=== PATIENT | female | born 1935 | race Caucasian/White ===

== ENCOUNTER 2016-05-06 11:29 | Outpatient (CLI) | payer OTHER ==
--- NOTE | 2016-05-06 14:03 | DIAGNOSTIC IMAGING REPORT ---
PROCEDURE: CT THORAX ABDOMEN W/O CONTRAST INDICATION: CHEST MASS TECHNIQUE: Axial scans with coronal and sagittal re-formations. COMPARISON: [facility] chest x-ray 04/27/2016. FINDINGS: Chest: Moderate emphysema. 1.7 cm mildly spiculated left upper lobe mass. No adenopathy or effusion. Moderate atherosclerosis of the aorta. Coronary atherosclerosis. Normal heart size. Old mild T7 compression and right rib fractures. Mild degenerative changes of the spine. Abdomen: Multiple sharply marginated cystic lesions throughout the liver, largest in the tip of the right hepatic lobe measuring 3.4 cm. Some of these demonstrate calcification and some of the sub centimeter lesions are not as well as sharply marginated and may represent solid masses. Contracted gallbladder with multiple small calcified gallstones. The pancreas, spleen and adrenal glands are normal. Bilateral renal cysts. Severe atherosclerosis of the aorta. No retroperitoneal adenopathy. Small hiatal hernia. Mild proximal sigmoid diverticulosis. IMPRESSION: 1. 1.7 cm left upper lobe spiculated nodule suspicious for lung neoplasm. Metastasis is less likely. 2. Multiple hepatic cystic lesions, many of which are consistent with cysts but there are several subcentimeter lesions which may be solid, possibly hemangiomas or metastases. Recommend CT scan with contrast or if the patient is unable, abdominal ultrasound. 3. Emphysema 4. Cholelithiasis 5. Hiatal hernia 6. Results discussed with LATOYA Hernandez
== END 2016-05-06 23:00 ==
LOC: CT SRH 11:29
DX: R22.9 Localized swelling, mass and lump, unspecified (principal)
CPT/HCPCS: 90074; 90100

== ENCOUNTER 2016-05-15 09:08 | Outpatient (CLI) | payer OTHER ==
--- NOTE | 2016-05-15 11:10 | DIAGNOSTIC IMAGING REPORT ---
PROCEDURE: US ABDOMEN ULTRASOUND-COMPLETE INDICATION: LIVER CYST, follow-up TECHNIQUE: Maguire scale and color Doppler sonographic images of the abdomen were obtained. COMPARISON: CT chest/abdomen 05/06/2016 FINDINGS: Liver measures 16.5 cm with coarse echo structure. There are multiple simple hepatic cysts, largest of 3.7. No evidence of solid hepatic masses. Normal spleen and pancreas. Multiple small gallstones but there is no wall thickening or pericholecystic fluid. Normal CBD measures 3.4 mm. Negative Ryan's sign. Aorta and IVC are patent. Hepatopetal flow in the portal vein. Right kidney measures 9.7 cm with a 1.1 cm lower pole cyst. Left kidney measures 7.9 cm with a 2.2 cm upper pole and 0.4 mid pole of cysts. A 4 mm mid pole echogenic focus corresponding to the vascular calcification seen on CT scan. No hydronephrosis. IMPRESSION: 1. Multiple hepatic cysts. No evidence of solid hepatic masses 2. Cholelithiasis 3. Bilateral renal cysts
== END 2016-05-15 23:00 ==
LOC: US SRH 09:08
DX: K76.89 Other specified diseases of liver (principal); N28.1 Cyst of kidney, acquired

== ENCOUNTER 2016-05-18 11:57 | Outpatient (CLI) | payer OTHER ==
--- NOTE | 2016-05-18 14:20 | DIAGNOSTIC IMAGING REPORT ---
PROCEDURE: CT LUNG/MEDIASTINUM BIOPSY CLINICAL INDICATION: Left lung mass/nodule. TECHNIQUE: Informed consent was obtained and the patient was advised of the usual risks and complications including infection, bleeding, allergy and pneumothorax. COMPARISON: Comparison is made to CT thorax on 05/06/2016. FINDINGS: Supine position. Following sterile preparation and 1% lidocaine local anesthetic, CT guidance was utilized to place a 19 gauge coaxial needle in the left upper anterior lateral thorax and directed into a 1.7 cm left lung nodule. Three core biopsy samples were obtained with a 20 gauge biopsy instrument. Follow-up CT images demonstrated moderate surrounding parenchymal hemorrhage. There is no hemoptysis. There is no evidence of pneumothorax The patient tolerated the procedure reasonably well and was transferred back to the main department for observation. IMPRESSION: 1. Successful CT-guided biopsy of left lung mass. 2. Moderate postbiopsy parenchymal hemorrhage. 3. Followup chest x-rays are pending. All CT scans at this facility use dose modulation, iterative reconstruction, and/or weight-based dosing when appropriate to reduce radiation dose to as low as reasonably achievable.
--- NOTE | 2016-05-18 14:23 | DIAGNOSTIC IMAGING REPORT ---
PROCEDURE: XR CHEST 1 VIEW INDICATION: Post left lung biopsy (20-minute film). TECHNIQUE: PA view (1405 hours). COMPARISON: Comparison made to chest x-ray from [facility] on 04/27/2016 FINDINGS: Status post left lung biopsy with mild to moderate parenchymal hemorrhage in the left upper lung. In addition, there is a small left apical pneumothorax. There is mild of bibasilar parenchymal scarring. Heart and mediastinum are normal IMPRESSION: 1. Status post left lung biopsy with mild to moderate parenchymal hemorrhage in the left upper lung. 2. Small left apical pneumothorax. 3. Follow-up chest x-rays are pending.
--- NOTE | 2016-05-18 16:43 | DIAGNOSTIC IMAGING REPORT ---
PROCEDURE: XR CHEST 1 VIEW INDICATION: Follow-up left lung biopsy (2 hours). TECHNIQUE: PA view (1600 hours). COMPARISON: Compared to chest x-ray earlier today (1500 hours, 05/18/2016). FINDINGS: Small left apical pneumothorax has resolved. There is resolving left lung pulmonary hemorrhage. The rest of the chest is unchanged. IMPRESSION: 1. Resolution of left apical pneumothorax. 2. Resolving left lung pulmonary hemorrhage. 3. The patient was discharged home to the care of her sister in satisfactory condition, with instructions to call me for any untoward symptoms (chest pain, shortness of breath).
--- NOTE | 2016-05-18 18:52 | DIAGNOSTIC IMAGING REPORT ---
PROCEDURE: XR CHEST 1 VIEW INDICATION: Follow-up left lung biopsy (1 hour 15 minutes). TECHNIQUE: PA view (1500 hours). COMPARISON: Compared to chest x-ray earlier today (05/18/2016, 1405 hours). FINDINGS: Small left apical pneumothorax remains stable. There is mild improvement with resolving left upper lung parenchymal hemorrhage. The rest of the chest is unchanged. IMPRESSION: 1. Stable appearance of a small left apical pneumothorax. 2. Resolving left upper lung parenchymal hemorrhage. 3. Follow-up chest x-ray is pending.
== END 2016-05-18 23:00 ==
LOC: CT SRH 11:57 → US SRH 12:00 → CT SRH 23:00
PROC: 0BBL3ZX Excision of Left Lung, Percutaneous Approach, Diagnostic (ICD-10-PCS; principal; 2016-05-18)
DX: R91.8 Other nonspecific abnormal finding of lung field (principal); J95.830 Postprocedural hemorrhage of a respiratory system organ or structure following a respiratory system procedure; J93.9 Pneumothorax, unspecified
CPT/HCPCS: 82445; 82585

== ENCOUNTER 2016-07-30 12:03 | Outpatient (CLI) | payer OTHER | END 2016-07-30 23:00 | disposition home or self-care (01) | LOC: LAB SRH 12:03 | DX: N05.9 Unspecified nephritic syndrome with unspecified morphologic changes (principal); D50.0 Iron deficiency anemia secondary to blood loss (chronic); D64.9 Anemia, unspecified; N25.81 Secondary hyperparathyroidism of renal origin | CPT/HCPCS: 90047; 90074; 91162; 91163; 91171; 91282; 92668; 92670 ==